=== PATIENT | female | born 1980 | race Caucasian/White ===

== ENCOUNTER 2018-08-23 10:34 | Emergency (ER) | payer OTHER ==
[~2018-08-23] VITALS: Ht 172.7 cm; Wt 106.6 kg
[2018-08-23] MEDS ORDERED: SYNTHROID100 MC1 PO (10:41)
[2018-08-23 11:10] LABS: ABSOLUTE BASOPHILS 0.1 thou/uL (0.0-0.2); ABSOLUTE EOSINOPHILS 0.1 thou/uL (0.0-0.7); ABSOLUTE LYMPHOCYTES 1.1 thou/uL (0.8-5.3); ABSOLUTE MONOCYTES 0.4 thou/uL (0.0-1.2); ABSOLUTE NEUTROPHILS 6.5 thou/uL (1.6-8.1); EOSINOPHILS 1.1 %; HEMATOCRIT 42.1 % (37.0-47.0); HEMOGLOBIN 14.3 gm/dL (12.0-15.0); MCH 31.2 pg (26.0-34.0); MCHC 33.9 g/dL (28.0-37.0); MPV 8.8 fl. (7.2-11.1); NUCLEATED RBCS 0 /100WBC; PLATELET COUNT* 276 thou/uL (150-400); POLYS 79.9 %; RBC 4.57 mil/uL (4.20-5.00); RDW-CV 14.1 % (10.5-14.5); WBC 8.1 thou/uL (4.0-11.0)
[2018-08-23 11:27] LABS: ANION GAP 10 mmol/L (7-16); BUN 15 mg/dL (7-18); CALCIUM 9.2 mg/dL (8.5-10.1); CHLORIDE 103 mmol/L (98-107); CO2 27 mmol/L (21-32); CREATININE 0.8 mg/dL (0.6-1.3); GLUCOSE 107 mg/dL (70-99); POTASSIUM 4.4 mmol/L (3.5-5.1); SODIUM 140 mmol/L (136-145)
[2018-08-23 11:28] LABS: APTT 28.7 Seconds (25.0-31.3); PROTIME 10.4 Seconds (9.20-11.50)
[2018-08-23 11:44] LABS: ALKALINE PHOSPHATASE 76 U/L (46-116); CK-MB MASS < 0.5 ng/mL (<0.5-3.6); LIPASE 135 U/L (73-393); MAGNESIUM 1.9 mg/dL (1.8-2.4); NT-PRO BRAIN NAT PEPTIDE 22 pg/mL (<300); SGOT 12 U/L (15-37); SGPT 21 U/L (30-65); TOTAL BILIRUBIN 0.6 mg/dL (<0.1-1.0); TOTAL PROTEIN 7.6 g/dL (6.4-8.2); TROPONIN-I LEVEL <0.06 ng/mL (<0.06)
[2018-08-23] MEDS ORDERED: XANAX 0.25 MG0.25 MG PO (12:04)
[2018-08-23 12:31] VITALS: BP 152/89
--- NOTE | 2018-08-23 16:37 | EKG ---
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 AGUIRRE : 1980 Requested By: Rufino Morfin Order Number: [id number] MD: David Graff Measurements Intervals [place] Rate: 105 P: 34 [place]: 141 QRS: 52 QRSD: 74 T: 4 QT: 302 QTc: 400 Interpretive Statements Sinus tachycardia Borderline T wave abnormalities Baseline wander in lead(s) I No previous ECG available for comparison Electronically Signed On 08-23-2018 16:37:07 CORPORATE COMPLIANCE DIRECTOR by David Graff [email or web address] <ELECTRONICALLY SIGNED> By: David Graff MD, [facility] 08/23/18 1637 1039 1039 David Graff MD, FACC /EPI
== END 2018-08-23 12:32 | disposition home or self-care (01) ==
LOC: M.ERS 10:34
PROVIDERS: Family Medicine
DX: R07.89 Other chest pain (principal); F41.9 Anxiety disorder, unspecified; R55 Syncope and collapse; R06.02 Shortness of breath; E03.9 Hypothyroidism, unspecified; Z88.1 Allergy status to other antibiotic agents

== ENCOUNTER 2018-09-11 23:54 | Inpatient (IN) | payer OTHER ==
[~2018-09-11] VITALS: Ht 172.7 cm; Wt 101.6 kg
--- NOTE | ~2018-09-11 | CON ---
[address] [address] CONSULTATION Name: ALEISHA MUÑOZ Room: [address] IN .R.#: [id number] Admission: 09/12/18 Attend Phys: Radha Perez Discharge: Date of : 78 Report #: [id number] THIS REPORT FOR: //name// CC: ELENITA physician/PCP Jerzy Trevino DATE OF SERVICE: 09/12/2018 REASON FOR CONSULT: Epigastric pain, nausea and vomiting. REQUESTING PHYSICIAN: Andrew Pena MD. HISTORY OF PRESENT ILLNESS: This is a 37-year-old female with history of hypothyroidism, who has not been taking her medication and she was not euthyroid. She had developed anxiety, tachycardia and syncope. The patient also has been complaining of abdominal pain, which is mainly in the right upper quadrant with radiation to the shoulder and the neck. This has been associated with nausea and vomiting. The patient reports that she has been taking ibuprofen for this pain. She also has been retching and vomiting a lot until she had hematemesis. This prompted her to come to the hospital. She denies any diarrhea, constipation, hematochezia or melena. PAST MEDICAL HISTORY: Significant for history of anxiety, hypothyroidism, depression, hypertension. ALLERGIES: SIGNIFICANT TO CLARITHROMYCIN. MEDICATIONS: Please refer to MAR. SOCIAL HISTORY: The patient is , has two children. She is employed. Denies tobacco or alcohol use. FAMILY HISTORY: Negative for GI malignancy. LABORATORY DATA: Revealed sodium of 143, potassium 3.7, BUN is 11, creatinine 0.8, glucose is 79, AST is 9, ALT 18, alkaline phosphatase 69, total bilirubin is 0.2. WBC is 9.9, hemoglobin is 12.3, platelet is 233. IMAGING: CT of abdomen and pelvis was obtained. This was significant for mild thickening of the gastric antrum suggestive of gastritis and antritis. There is also mildly prominent portal lymph node measuring 11 mm, which is reactive. Finally, there is a small fat containing periumbilical hernia. ASSESSMENT AND PLAN: The patient with right upper quadrant pain, nausea, vomiting who had hematemesis from retching and has history of NSAID use, ibuprofen. We will perform an upper endoscopy. If [place] [address] CONSULTATION Name: ALEISHA MUÑOZ Room: [address]#: [id number] Admission: 09/12/18 Attend Phys: Radha Perez Discharge: Date of : 78 Report #: [id number] explain the patient's pain, we will consider a CCK PIPIDA scan. The patient is agreeable with plan. By: [id number] Christy MD /nt
[~2018-09-11 23:54] MED LIST: SYNTHROID100 MC1 PO; XANAX 0.25 MG0.25 MG PO
[2018-09-12 00:03] VITALS: BP 157/86
[2018-09-12] MEDS ORDERED: LOPRESSOR50 PO (00:07)
[2018-09-12] MEDS ORDERED: EFFEXOR XR37.5 MG PO (00:07)
[2018-09-12 00:10] LABS: URINE BILIRUBIN NEGATIVE (Negative); URINE BLOOD 2+ (Negative); URINE CLARITY CLEAR; URINE COLOR YELLOW; URINE GLUCOSE-RANDOM NEGATIVE (Negative); URINE KETONES NEGATIVE (Negative); URINE LEUKOCYTES-REFLEX NEGATIVE (Negative); URINE NITRITE-REFLEX NEGATIVE (Negative); URINE PROTEIN NEGATIVE (Negative); URINE SPECIFIC GRAVITY >= 1.030 (1.005-1.030); URINE UROBILINOGEN 0.2 E.U./dl (0.2-1.0)
[2018-09-12 00:14] LABS: SQUAMOUS 0-3 Few /LPF (0-3)
[2018-09-12 00:16] LABS: BACTERIA-REFLEX >30 Many /HPF (None Seen); COARSE GRANULAR CASTS 0-3 Few /LPF (None Seen); CRYSTALS None Seen /LPF (None Seen); FINE GRANULAR CASTS 0-3 Few /LPF (None Seen); HYALINE CASTS 0-3 Few /LPF (None Seen); MUCUS 4-6 Moderate strn/LPF (None Seen); URINE RBC >20 Many /HPF (0-2); URINE WBC-REFLEX 0-5 Rare /HPF (0-5)
[2018-09-12 00:23] LABS: ABSOLUTE BASOPHILS 0.1 thou/uL (0.0-0.2); ABSOLUTE EOSINOPHILS 0.5 thou/uL (0.0-0.7); ABSOLUTE LYMPHOCYTES 2.4 thou/uL (0.8-5.3); ABSOLUTE MONOCYTES 0.6 thou/uL (0.0-1.2); ABSOLUTE NEUTROPHILS 6.4 thou/uL (1.6-8.1); BASOPHILS 0.7 %; EOSINOPHILS 4.8 %; HEMATOCRIT 36.9 % (37.0-47.0); HEMOGLOBIN 12.3 gm/dL (12.0-15.0); LYMPHOCYTES 23.7 %; MCH 30.8 pg (26.0-34.0); MCHC 33.3 g/dL (28.0-37.0); MCV 92.4 fL (80.0-100.0); MONOCYTES 6.4 %; MPV 8.8 fl. (7.2-11.1); NUCLEATED RBCS 0 /100WBC; PLATELET COUNT* 232 thou/uL (150-400); POLYS 64.4 %; RBC 3.99 mil/uL (4.20-5.00); RDW-CV 14.1 % (10.5-14.5); WBC 9.9 thou/uL (4.0-11.0)
[2018-09-12 00:32] LABS: CALCIUM 8.4 mg/dL (8.5-10.1); CREATININE 0.8 mg/dL (0.6-1.3); POTASSIUM 3.7 mmol/L (3.5-5.1)
[2018-09-12 00:36] LABS: ALBUMIN 3.5 g/dL (3.4-5.0); TOTAL BILIRUBIN 0.2 mg/dL (<0.1-1.0); TOTAL PROTEIN 6.5 g/dL (6.4-8.2)
[2018-09-12 04:24] LABS: AMP/METHAMP Negative (Negative); BARBITURATES Negative (Negative); BENZODIAZEPINES Negative (Negative); COCAINE Negative (Negative); METHADONE Negative (Negative); OPIATES Negative (Negative); PCP Negative (Negative); THC Negative (Negative)
[2018-09-12 05:35] VITALS: BP 120/73
[2018-09-12 08:01] VITALS: BP 110/60
[2018-09-12 12:45] VITALS: BP 119/70
--- NOTE | 2018-09-12 13:46 | EKG ---
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 : 1980 Requested By: Kary Rodriguez Order Number: [id number] MD: Jef Mcdaniel Measurements Intervals [place] Rate: 76 P: 23 [place]: 152 QRS: 53 QRSD: 81 T: 34 QT: 356 QTc: 401 Interpretive Statements Sinus rhythm Low voltage, precordial leads Compared to ECG 08/23/2018 10:39:02 Low QRS voltage now present Sinus tachycardia no longer present T-wave abnormality no longer present Electronically Signed On 09-12-2018 13:46:10 EMERGENCY ROOM CLERK by Jef Mcdaniel [email or web address] <ELECTRONICALLY SIGNED> By: Jef Mcdaniel MD, [facility] 09/12/18 1346 001 0012 Jef Mcdaniel MD, FAC /EPI
[2018-09-12 16:00] VITALS: BP 138/70
[2018-09-12 20:00] VITALS: BP 126/59
[2018-09-13 04:04] LABS: ABSOLUTE EOSINOPHILS 0.4 thou/uL (0.0-0.7); ABSOLUTE LYMPHOCYTES 2.1 thou/uL (0.8-5.3); ABSOLUTE MONOCYTES 0.4 thou/uL (0.0-1.2); ABSOLUTE NEUTROPHILS 4.3 thou/uL (1.6-8.1); BASOPHILS 0.3 %; EOSINOPHILS 5.2 %; HEMATOCRIT 32.4 % (37.0-47.0); MCH 31.4 pg (26.0-34.0); MCHC 33.8 g/dL (28.0-37.0); MCV 92.6 fL (80.0-100.0); MONOCYTES 5.9 %; NUCLEATED RBCS 0 /100WBC; PLATELET COUNT* 195 thou/uL (150-400); POLYS 59.6 %; RDW-CV 14.4 % (10.5-14.5); WBC 7.3 thou/uL (4.0-11.0)
[2018-09-13 04:34] LABS: CALCIUM 7.7 mg/dL (8.5-10.1); CREATININE 0.9 mg/dL (0.6-1.3); POTASSIUM 4.4 mmol/L (3.5-5.1)
[2018-09-13 07:30] VITALS: BP 120/46
[2018-09-13] MEDS ORDERED: PROTONIX40 M1 PO (16:14)
[2018-09-13] MEDS ORDERED: PHENERGAN 25 MG25 M1 PO (16:16)
[2018-09-13 16:17] VITALS: BP 120/46
[2018-09-13] MEDS ORDERED: GI COCKTAIL PO (16:40)
[2018-09-13 17:48] VITALS: BP 120/46
[2018-09-13 19:11] VITALS: BP 120/46
--- NOTE | 2018-09-17 11:08 | PATH ---
[facility] [address] [place] [address] PATHOLOGY RPT PROCEDURE Name: NGOC HAWKINS Room: [address] IN .R.#: [id number] Admission: 09/12/18 Date of : 78 Discharge: 09/13/18 Report #: [id number] Path Case #: [id number] [facility] Accession Number: [id number] . 01 Material submitted: . GASTRIC BIOPSY FOR H-PYLORI . 01 Clinical history: . None provided . 02 Diagnosis: Gastric biopsy: - Moderate nonspecific chronic gastritis, negative for Helicobacter pylori organisms and dysplasia. (SANDRA:karo; 09/16/2018) . . Special stain: H. pylori immuno QMS/09/16/2018 . 02 Electronically signed: . Km Craven MD, Pathologist NPI- [id number] . 01 Gross description: . Received in formalin labeled "Ngoc Hawkins, gastric biopsy for H. pylori" are 2 segments of griffin soft tissue measuring 0.9 x 0.3 x 0.3 cm in aggregate dimensions and ranging from 0.4 to 0.5 cm in maximum dimension. The specimen is submitted entirely in cassette A1. (TSD; 09/13/2018) TOB/TOB . 02 Pathologist provided ICD-10: K29.50 . 02 CPT . 928134, O82977 Specimen Comment: A courtesy copy of this report has been sent to Specimen Comment: [phone], . Specimen Comment: Report sent to / DR FRANKLIN Specimen Comment: A duplicate report has been generated due to demographic updates. Performed at: [address] [id number] MD Josh Barcenas MD Phone: [phone] Performed at: [address] [address] PATHOLOGY RPT PROCEDURE Name: NGOC HAWKINS Room: [address]#: [id number] Admission: 09/12/18 Date of : 78 Discharge: 09/13/18 Report #: [id number] Path Case #: [id number] [address] [place], [place] [id number] MD Km Craven MD Phone: [phone]
== END 2018-09-13 19:00 | disposition home or self-care (01) | DRG 378 ==
LOC: M.ERS 23:54 → M.TBA-ER 09-12 04:22 → M.ORTHSURG 09-12 04:22
PROVIDERS: Emergency Medicine; Internal Medicine; ADMIT Internal Medicine
PROC: 0DB78ZX Excision of Stomach, Pylorus, Via Natural or Artificial Opening Endoscopic, Diagnostic (ICD-10-PCS; principal; 2018-09-13)
DX: K25.0 Acute gastric ulcer with hemorrhage (principal); D62 Acute posthemorrhagic anemia; Q21.0 Ventricular septal defect; K92.0 Hematemesis; E03.9 Hypothyroidism, unspecified; F41.9 Anxiety disorder, unspecified; F32.9 Major depressive disorder, single episode, unspecified; I10 Essential (primary) hypertension; K44.9 Diaphragmatic hernia without obstruction or gangrene; Z88.1 Allergy status to other antibiotic agents

== ENCOUNTER → 2018-10-25 | Day surgery (SDC) | payer OTHER ==
[~2018-10-25] MED LIST changes: +EFFEXOR XR37.5 MG PO; +GI COCKTAIL PO; +LOPRESSOR50 PO; +PHENERGAN 25 MG25 M1 PO; +PROTONIX40 M1 PO
[2018-10-25 09:22] LABS: HEMOGLOBIN 13.8 gm/dL (12.0-15.0)
== END | disposition home or self-care (01) ==
LOC: M.PRE 09-16 06:48 → M.SUR 06:46 → M.PRE 07:02 → M.SUR 08:46 → M.PRE 09:58 → EDSTATUS 10:17 → M.SUR 10:19
PROVIDERS: Anesthesiology
DX: K82.8 Other specified diseases of gallbladder (principal); E03.9 Hypothyroidism, unspecified; F41.9 Anxiety disorder, unspecified; F32.9 Major depressive disorder, single episode, unspecified; E66.9 Obesity, unspecified; Z88.8 Allergy status to other drugs, medicaments and biological substances; Z79.899 Other long term (current) drug therapy

== ENCOUNTER → 2020-09-27 | Outpatient (CLI) | payer OTHER ==
[2020-09-27 13:17] LABS: ALBUMIN 3.7 g/dL (3.4-5.0); CALCIUM 8.6 mg/dL (8.5-10.1); CREATININE 0.8 mg/dL (0.6-1.3); POTASSIUM 4.1 mmol/L (3.5-5.1); TOTAL BILIRUBIN 0.3 mg/dL (<0.1-1.0); TOTAL PROTEIN 6.6 g/dL (6.4-8.2)
== END ==
LOC: M.NUC 11:39
PROVIDERS: ATTEND Internal Medicine Gastroenterology
DX: R11.2 Nausea with vomiting, unspecified (principal); R10.9 Unspecified abdominal pain